=== PATIENT | female | born 1955 | race Caucasian/White ===

== ENCOUNTER → 2017-10-05 | Outpatient (CLI) | payer BC ==
--- NOTE | 2017-10-05 08:21 | MM ---
Reason for exam: additional evaluation requested from abnormal screening. Last mammogram was performed 1 month ago. History: Patient is postmenopausal and had first child at age 31. Family history of breast cancer in sister at age 63. Benign ultrasound-guided cyst aspiration of the right breast, 1999. Benign excisional biopsy of the right breast, 1999. Excisional biopsy of the left breast. Took estrogen for 12 years beginning at age 46. Took progesterone for 12 years beginning at age 46. Physical Findings: Nurse did not find any significant physical abnormalities on exam. MG 3D Work Up W/Cad RT CC, MLO, and LM view(s) were taken of the right breast. Prior study comparison: September 19, 2017, bilateral MG 3d screening mammo w/cad. July 20, 2016, bilateral MG 3d screening mammo w/cad. May 14, 2015, bilateral MG diagnostic mammo w CAD ANTONIO. No distinct new lesion persists. Stable distortion in the left aspect from excisional biopsy. These results were verbally communicated with the patient and result sheet given to the patient on 10/05/17. ASSESSMENT: Benign, BI-RAD 2 RECOMMENDATION: Routine screening mammogram of both breasts in 1 year.
== END | disposition home or self-care (01) ==
LOC: RADMAMWWP 07:06
PROVIDERS: ATTEND Family Medicine
DX: R92.8 Other abnormal and inconclusive findings on diagnostic imaging of breast (principal)
CPT/HCPCS: 77065; G0279

== ENCOUNTER → 2018-11-09 | Outpatient (CLI) | payer BC ==
--- NOTE | 2018-11-10 13:36 | MM ---
Reason for exam: screening (asymptomatic). Last mammogram was performed 1 year and 1 month ago. History: Patient is postmenopausal and had first child at age 31. Family history of breast cancer in sister at age 63. Benign ultrasound-guided cyst aspiration of the right breast, 1999. Benign excisional biopsy of the right breast, 1999. Excisional biopsy of the left breast. Took estrogen for 12 years beginning at age 46. Took progesterone for 12 years beginning at age 46. Physical Findings: A clinical breast exam by your physician is recommended on an annual basis and results should be correlated with mammographic findings. MG 3D Screening Mammo W/Cad Bilateral CC and MLO view(s) were taken. Prior study comparison: October 05, 2017, right breast MG 3d work up w/cad RT. September 19, 2017, bilateral MG 3d screening mammo w/cad. The breast tissue is heterogeneously dense. This may lower the sensitivity of mammography. No suspicious abnormality. No significant changes when compared with prior studies. ASSESSMENT: Negative, BI-RAD 1 RECOMMENDATION: Routine screening mammogram of both breasts in 1 year.
== END | disposition home or self-care (01) ==
LOC: RADMAMWWP 13:25
PROVIDERS: ATTEND Family Medicine
DX: Z12.31 Encounter for screening mammogram for malignant neoplasm of breast (principal)
CPT/HCPCS: 77063; 77067

== ENCOUNTER → 2019-01-05 | Outpatient (CLI) | payer BC ==
--- NOTE | 2019-01-08 09:04 | BD ---
EXAMINATION TYPE: Axial Bone Density DATE OF EXAM: 01/05/2019 COMPARISON: 05/16/2003 CLINICAL HISTORY: Screening for osteoporosis Height: 64.5 IN Weight: 118 LBS RISK FACTORS HISTORY OF: Family History of Osteoporosis: YES SISTER Active: YES Diet low in dairy products/other sources of calcium: YES Postmenopausal woman: AGE 49 Take estrogen and/or progesterone medications: NOT NOW How long: CONTROL AGE 29- 41 MEDICATIONS: Additional Medications: CALCIUM, VIT D, PROBIOTIC, ZYRTEC, EXAM MEASUREMENTS: Bone mineral densitometry was performed using the [employer] System. Bone mineral density as measured about the Lumbar spine is: ----- L1-L4(G/cm2): 1.103 T Score Values are as follows: ----- L2: -0.8 ----- L3: -0.6 ----- L4: -0.3 ----- L1-L4: -0.6 Bone mineral density has: Decreased -15.8% since study of: 05/16/2003 Bone mineral density about the R hip (g/cm2): 0.750 Bone mineral density about the L hip (g/cm2): 0.762 T Score values are as follows: -----R Neck: -2.1 -----L Neck: -2.0 -----R Total: -1.6 -----L Total: -1.5 Bone mineral density has: Decreased -22.6% since study of: 05/16/2003 IMPRESSION: Osteopenia (T Score between -2.5 and -1). There is slightly increased risk of fracture and the patient may be considered for treatment. Re-Screen 2-5 years. NOTE: T-SCORE=SD OF THE YOUNG ADULT MEAN.
== END | disposition home or self-care (01) ==
LOC: RADBDWWP 12:33
PROVIDERS: ATTEND Family Medicine
DX: M85.88 Other specified disorders of bone density and structure, other site (principal)
CPT/HCPCS: 77080

== ENCOUNTER → 2019-02-16 | Outpatient (CLI) | payer BC ==
--- NOTE | 2019-02-17 12:58 | US ---
EXAMINATION TYPE: US transvaginal DATE OF EXAM: 02/16/2019 COMPARISON: NONE CLINICAL HISTORY: Pelvic Pain R10.2. Pain. LO removed x >10 years ago. TECHNIQUE: Transvaginal (TV). Date of LMP: Unknown, EXAM MEASUREMENTS: Uterus: 6.1 x 3.0 x 2.6 cm Endometrial Stripe: 0.2 cm 1. Uterus: Anteverted Heterogenous. Small in size. Left echogenic focus seen with shadow- 0.8 x 1.0 cm 2. Endometrium: fluid seen within canal 3. Right Ovary: Obscured by overlying bowel gas 4. Left Ovary: Surgically absent 5. Bilateral Adnexa: Bilateral peristalsing bowel visualized 6. Posterior cul-de-sac: no free fluid IMPRESSION: 1. The uterus is atrophic with solitary benign-appearing dystrophic calcification possibly from a deg enerative involuted uterine leiomyoma. 2. Tubular structures in the left adnexa appear to represent bowel however left ovarian mass cannot b e excluded on the exam without real-time imaging. Additionally the right ovary is not visualized due to overlying bowel and CT could further assess the pelvis if there is clinical concern.
== END | disposition home or self-care (01) ==
LOC: RADUSWWP 16:03
PROVIDERS: ATTEND Specialist
DX: N85.8 Other specified noninflammatory disorders of uterus (principal); R10.2 Pelvic and perineal pain
CPT/HCPCS: 76830

== ENCOUNTER → 2019-03-09 | Outpatient (CLI) | payer BC ==
--- NOTE | 2019-03-09 14:27 | CT ---
EXAMINATION TYPE: CT abdomen pelvis wo con DATE OF EXAM: 03/09/2019 COMPARISON: Ultrasound 02/16/2019 HISTORY: Left lower quadrant pain CT DLP: 224.9 mGycm Automated exposure control for dose reduction was used. TECHNIQUE: Helical acquisition of images from the lung bases through the pelvis. FINDINGS: Lack of intravenous contrast could compromise sensitivity. LUNG BASES: No significant abnormality is appreciated. AORTA: No significant abnormality is appreciated. LIVER/GB: There are 2 low dense foci within the liver on axial image 22 and 19, the larger measures 1 5 mm. Additional focus within the left lobe on axial image 18 is subcentimeter in size. These are ind eterminate lesions. Gallbladder shows gallstones PANCREAS: No significant abnormality is seen. SPLEEN: No significant abnormality is seen. ADRENALS: No significant abnormality is seen. KIDNEYS: Right kidney is malrotated. There is no hydronephrosis bilaterally. REPRODUCTIVE ORGANS: Calcifications are present within the pelvis, there is likely a calcified fibro id associated with the left aspect of the uterus as noted on ultrasound URINARY BLADDER: No significant abnormality is seen. BOWEL: Large amount of retained fecal debris within the colon.. FREE AIR: No Free Air is visible. ASCITES: None visible. PELVIC ADENOPATHY: None visualized. RETROPERITONEAL ADENOPATHY: No Retroperitoneal Adenopathy visible. OSSEOUS STRUCTURES: No significant abnormality is seen. IMPRESSION: NONCONTRAST EXAM. CHOLELITHIASIS. CALCIFIED FIBROID LIKELY WITHIN THE UTERUS.
== END ==
LOC: RADCTMAIN 12:16
PROVIDERS: ATTEND Specialist
DX: K80.20 Calculus of gallbladder without cholecystitis without obstruction (principal); N83.8 Other noninflammatory disorders of ovary, fallopian tube and broad ligament
CPT/HCPCS: 74176

== ENCOUNTER → 2020-05-01 | Outpatient (CLI) | payer MEDICARE, BC ==
--- NOTE | 2020-05-02 14:47 | MM ---
Reason for exam: screening (asymptomatic). Last mammogram was performed 1 year and 6 months ago. History: Patient is postmenopausal and had first child at age 31. Family history of breast cancer in sister at age 63. Benign ultrasound-guided cyst aspiration of the right breast, 1999. Benign excisional biopsy of the right breast, 1999. Excisional biopsy of the left breast. Took estrogen for 12 years beginning at age 46. Took progesterone for 12 years beginning at age 46. Physical Findings: A clinical breast exam by your physician is recommended on an annual basis and results should be correlated with mammographic findings. MG 3D Screening Mammo W/Cad Bilateral CC and MLO view(s) were taken. Prior study comparison: November 09, 2018, bilateral MG 3d screening mammo w/cad. October 05, 2017, right breast MG 3d work up w/cad RT. The breast tissue is extremely dense which could obscure a lesion on mammography. No significant changes when compared with prior studies. ASSESSMENT: Benign, BI-RAD 2 RECOMMENDATION: Routine screening mammogram of both breasts in 1 year.
== END | disposition home or self-care (01) ==
LOC: RADMAMWWP 15:07
PROVIDERS: ATTEND Family Medicine
DX: Z12.31 Encounter for screening mammogram for malignant neoplasm of breast (principal)
CPT/HCPCS: 77063; 77067

== ENCOUNTER → 2021-03-09 | Outpatient (CLI) | payer MEDICARE, BC ==
--- NOTE | 2021-03-09 16:34 | BD ---
EXAMINATION TYPE: Axial Bone Density DATE OF EXAM: 03/09/2021 COMPARISON: 01.05.2019 CLINICAL HISTORY: 65 YR OLD FEMALE.....ICD-10 CODE: M85.9 DISORDER OF BONE Height: 64.5 Weight: 111 FRAX RISK QUESTIONS: KIDNEY STONES, FROM HYERCALCEMIA RISK FACTORS HISTORY OF: Family History of Osteoporosis: YES, HER SISTER, NO HIP FX Diet low in dairy products/other sources of calcium: YES, LACTOSE INTOLERANT, CANNOT ABSORB CALCIUM Postmenopausal woman: YES, AT ABOUT AGE 49 YRS OLD Take estrogen and/or progesterone medications: YES, FOR ABOUT 2 YRS, BOTH ESTROGEN AND PROGESTERONE Hyperparathyroidism: NO Adrenal Insufficiency: NO MEDICATIONS: Additional Medications: VIT D AND MULTIVITAMIN, FISH OIL, AND MANY OTHER MEDS PLUS THE BIOIDENTICAL H ORMONES Additional History: VERY SLENDER BUILD EXAM MEASUREMENTS: Bone mineral densitometry was performed using the [employer] System. Bone mineral density as measured about the Lumbar spine is: ----- L1-L4(G/cm2): 1.098 T Score Values are as follows: ----- L1: -0.7 ----- L2: -0.9 ----- L3: -0.5 ----- L4: -0.8 ----- L1-L4: -0.7 Bone mineral density has: Decreased -1.5% since study of: 01.05.2019 Bone mineral density about the R hip (g/cm2): 0.802 Bone mineral density about the L hip (g/cm2): 0.816 T Score values are as follows: -----R Neck: -1.9 -----L Neck: -2.1 -----R Total: -1.6 -----L Total: -1.5 Bone mineral density has: Decreased -0.2% since study of: 01.05.2019 FRAX%s: THERE IS A 9.9% CHANCE FOR A MAJOR OSTEOPOROTIC FX AND 1.9% FOR HIP......PROBABILITY FOR FX IN 10 YRS TIME IMPRESSION: Osteopenia (T Score between -2.5 and -1). There is slightly increased risk of fracture and the patient may be considered for treatment. Re-Screen 2-5 years. NOTE: T-SCORE=SD OF THE YOUNG ADULT MEAN.
== END | disposition home or self-care (01) ==
LOC: RADBDWWP 10:06
PROVIDERS: ATTEND Family Medicine
DX: Z13.820 Encounter for screening for osteoporosis (principal); M85.89 Other specified disorders of bone density and structure, multiple sites
CPT/HCPCS: 77080

== ENCOUNTER → 2021-06-22 | Outpatient (CLI) | payer MEDICARE, BC ==
--- NOTE | 2021-06-24 09:54 | MM ---
Reason for exam: screening (asymptomatic). Last mammogram was performed 1 year and 2 months ago. History: Patient is postmenopausal and had first child at age 31. Family history of breast cancer in sister at age 63. Benign ultrasound-guided cyst aspiration of the right breast, 1999. Benign excisional biopsy of the right breast, 1999. Excisional biopsy of the left breast. Took hormonal contraceptives for 15 years. Took estrogen for 12 years beginning at age 46. Took progesterone for 12 years beginning at age 46. Physical Findings: A clinical breast exam by your physician is recommended on an annual basis and results should be correlated with mammographic findings. MG 3D Screening Mammo W/Cad Bilateral CC and MLO view(s) were taken. Prior study comparison: May 01, 2020, bilateral MG 3d screening mammo w/cad. November 09, 2018, bilateral MG 3d screening mammo w/cad. October 05, 2017, right breast MG 3d work up w/cad RT. September 19, 2017, bilateral MG 3d screening mammo w/cad. The breast tissue is heterogeneously dense. This may lower the sensitivity of mammography. Finding: There are grouped/clustered, linear, fine calcifications in the lower outer quadrant, anterior position of the right breast 2cm from the nipple. New finding since May 01, 2020, November 09, 2018, October 05, 2017, and September 19, 2017. ASSESSMENT: Incomplete: need additional imaging evaluation, BI-RAD 0 RECOMMENDATION: Special view mammogram of the right breast. [facility] will attempt to contact patient to return for supplemental views.
== END | disposition home or self-care (01) ==
LOC: RADMAMWWP 14:08
PROVIDERS: ATTEND Family Medicine
DX: Z12.31 Encounter for screening mammogram for malignant neoplasm of breast (principal)
CPT/HCPCS: 77063; 77067

== ENCOUNTER → 2021-07-07 | Outpatient (CLI) | payer MEDICARE, BC ==
--- NOTE | 2021-07-07 14:58 | MM ---
Reason for exam: additional evaluation requested from abnormal screening. Last mammogram was performed less than 1 month ago. History: Patient is postmenopausal and had first child at age 31. Family history of breast cancer in sister at age 63. Benign ultrasound-guided cyst aspiration of the right breast, 1999. Benign excisional biopsy of the right breast, 1999. Excisional biopsy of the left breast. Took hormonal contraceptives for 15 years. Took estrogen for 12 years beginning at age 46. Took progesterone for 12 years beginning at age 46. Physical Findings: Nurse did not find any significant physical abnormalities on exam. MG 3D Work Up W/Cad RT CC with magnification, LM with magnification, and LM view(s) were taken of the right breast. Prior study comparison: June 22, 2021, bilateral MG 3d screening mammo w/cad. May 01, 2020, bilateral MG 3d screening mammo w/cad. November 09, 2018, bilateral MG 3d screening mammo w/cad. The breast tissue is extremely dense which could obscure a lesion on mammography. No definite group of new persistent microcalcifications. These results were verbally communicated with the patient and result sheet given to the patient on 07/07/21. ASSESSMENT: Probably benign, BI-RAD 3 RECOMMENDATION: Follow-up diagnostic mammogram of the right breast in 6 months.
== END | disposition home or self-care (01) ==
LOC: RADMAMWWP 14:11
PROVIDERS: ATTEND Family Medicine
DX: R92.2 Inconclusive mammogram (principal); Z80.3 Family history of malignant neoplasm of breast; Z78.0 Asymptomatic menopausal state
CPT/HCPCS: 77065; G0279; 77061

== ENCOUNTER → 2021-07-09 | Outpatient (CLI) | payer MEDICARE, BC ==
--- NOTE | 2021-07-09 13:03 | US ---
EXAMINATION TYPE: US abdomen complete DATE OF EXAM: 07/09/2021 COMPARISON: CT 2019 CLINICAL HISTORY: 66-year-old female R10.12 LUQ pain. Intermittent left flank pain x couple years, di arrhea TECHNIQUE: Multiple sonographic images of the abdomen are obtained. FINDINGS: EXAM MEASUREMENTS: Liver Length: 12.8 cm Gallbladder Wall: 0.2 cm CBD: 0.3 cm Spleen: Unable to determine due to obscuration from bowel gas Right Kidney: 9.8 x 4.0 x 4.6 cm Left Kidney: 11.2 x 5.5 x 4.0 cm Pancreas: wnl Liver: 2 right lobe cysts. The larger one is mildly complex with some septations and measures 2.0 cm . It appears to have slightly enlarged compared to the 03/09/2019 CT. The smaller simple cyst measures 1.2 cm. Gallbladder: wnl Evidence for sonographic Marley's sign: no CBD: wnl Spleen: obscured by overlying bowel gas Right Kidney: inferior pole obscured by overlying bowel gas Left Kidney: wnl Upper IVC: wnl Abd Aorta: wnl IMPRESSION: 1. A couple right hepatic lobe cysts. The larger 2.0 cm cyst is mildly complex with some septations a nd has slightly enlarged from 2019. Recommend one-year ultrasound follow-up to reassess. 2. Unable to adequately visualize the spleen. 3. No hydronephrosis.
== END | disposition home or self-care (01) ==
LOC: RADUSWWP 09:00
PROVIDERS: ATTEND Family Medicine
DX: K76.89 Other specified diseases of liver (principal)
CPT/HCPCS: 76700

== ENCOUNTER → 2021-12-25 | Outpatient (CLI) | payer MEDICARE, BC ==
--- NOTE | 2021-12-25 14:43 | MM ---
Reason for exam: follow-up at short interval from prior study. Last mammogram was performed 6 months ago. History: Patient is postmenopausal and had first child at age 31. Family history of breast cancer in sister at age 63. Benign ultrasound-guided cyst aspiration of the right breast, 1999. Benign excisional biopsy of the right breast, 1999. Excisional biopsy of the left breast. Took hormonal contraceptives for 15 years. Taking estrogen for 14 years beginning at age 46. Taking progesterone for 14 years beginning at age 46. Physical Findings: A clinical breast exam by your physician is recommended on an annual basis and results should be correlated with mammographic findings. MG 3D Diag Mammo W/Cad RT CC and MLO view(s) were taken of the right breast. Prior study comparison: July 07, 2021, right breast MG 3d work up w/cad RT. May 01, 2020, bilateral MG 3d screening mammo w/cad. The breast tissue is extremely dense which could obscure a lesion on mammography. There are benign appearing round calcifications in the right breast. There is no discrete abnormality. ASSESSMENT: Incomplete: need additional imaging evaluation, BI-RAD 0 RECOMMENDATION: Ultrasound of the right breast. (palpable)
--- NOTE | 2021-12-25 14:46 | USB ---
Reason for exam: additional evaluation requested from abnormal screening. History: Patient is postmenopausal and had first child at age 31. Family history of breast cancer in sister at age 63. Benign ultrasound-guided cyst aspiration of the right breast, 1999. Benign excisional biopsy of the right breast, 1999. Excisional biopsy of the left breast. Took hormonal contraceptives for 15 years. Taking estrogen for 14 years beginning at age 46. Taking progesterone for 14 years beginning at age 46. Physical Findings: A clinical breast exam by your physician is recommended on an annual basis and results should be correlated with mammographic findings. US Breast RT Technologist: Cathy Leo Right complete breast ultrasound includes all four quadrants, the retroareolar region and axilla. Finding demonstrates several cystic lesions measuring 0.2 x 0.4 x 0.3cm at 12 o'clock 1cm from nipple, 0.3 x 0.3 x 0.2cm at 12 o'clock 2cm from nipple, 0.5 x 0.4 x 0.3cm at 5 o'clock 1cm from nipple, 0.6 x 0.5 x 0.3cm at 7 o'clock 1 cm from nipple, 0.5 x 0.4 x 0.5cm at 8 o'clock 1cm from nipple, 0.8 x 0.9 x 0.4cm at 11 o'clock 1cm from nipple, 0.8 x 0.8 x 0.5cm at 11 o'clock 3cm from nipple and 0.7 x 0.7 x 0.5cm at 9 o'clock 3cm from nipple. ASSESSMENT: Benign, BI-RAD 2 RECOMMENDATION: Return to routine screening mammogram schedule for both breasts. Back on schedule.
== END | disposition home or self-care (01) ==
LOC: RADMAMWWP 08:30
PROVIDERS: ATTEND Family Medicine
DX: N63.10 Unspecified lump in the right breast, unspecified quadrant (principal); Z78.0 Asymptomatic menopausal state; Z80.3 Family history of malignant neoplasm of breast
CPT/HCPCS: 77065; 76641; G0279; 77061

== ENCOUNTER 2022-05-27 11:50 | Observation (INO) | payer MEDICARE, BC ==
[2022-05-27] MEDS ORDERED: SODIUM CHLORIDE 0.9% 1,000 ML IV STA (12:44)
--- NOTE | 2022-05-27 12:48 | ED ---
General Adult HPI - General Chief complaint: Neuro Symptoms/Deficit Stated complaint: Dizziness Time Seen by Provider: 05/27/22 12:21 Source: patient, family, RN notes reviewed Mode of arrival: wheelchair Limitations: no limitations - History of Present Illness Initial comments: Patient is a pleasant 67-year-old female presenting to the emergency department with concerns for dizziness. Patient does have history of similar symptoms previously and does have history of vertigo. Patient does not feel a spinning type sensation. Patient had MRI secondary to chronic neurological problems. Patient does have memory problems and does have episodes of mild convulsions and usually just lasts for a couple of seconds. Patient has had 100s of these before. Patient had problems symptoms similar to this in 2008 and had MRI and neurology evaluation and lumbar puncture. There is reported lesions on the brain and they thought it may be attributed to MS or vascular disease. Lumbar puncture was reported as negative. Symptoms diminish however seem to have increased recently. After MRI today patient felt more dizzy described as lightheaded and has had a couple of these episodes. On previous neurology evaluation these were found to not be epileptic - Related Data Home Medications Medication Instructions Recorded Confirmed estradioL [Vivelle-Dot 0.0375 MG] 1 patch TRANSDERM TUSA 05/27/22 05/27/22 Allergies Allergy/AdvReac Type Severity Reaction Status Date / Time iodine Allergy Anaphylaxis Verified 05/27/22 13:32 shellfish derived [Shellfish] Allergy Anaphylaxis Verified 05/27/22 13:32 gluten AdvReac Nausea & Verified 05/27/22 13:32 Vomiting & Diarrhea Milk Containing Products AdvReac Nausea & Verified 05/27/22 13:32 [Dairy] Vomiting & Diarrhea Review of Systems ROS Statement: Those systems with pertinent positive or pertinent negative responses have been documented in the HPI. ROS Other: All systems not noted in ROS Statement are negative. Constitutional: Denies: fever Eyes: Denies: eye pain ENT: Denies: ear pain Respiratory: Denies: cough, dyspnea Cardiovascular: Denies: chest pain Endocrine: Denies: fatigue Gastrointestinal: Denies: abdominal pain Genitourinary: Denies: dysuria Musculoskeletal: Denies: back pain Skin: Denies: rash Neurological: Reports: as per HPI. Denies: headache, weakness, confusion Past Medical History Additional Past Medical History / Comment(s): memory issues Smoking Status: Never smoker Past Alcohol Use History: None Reported Past Drug Use History: None Reported General Exam Limitations: no limitations General appearance: alert, in no apparent distress Head exam: Present: atraumatic Eye exam: Present: normal appearance, PERRL, EOMI Neck exam: Present: normal inspection. Absent: tenderness Respiratory exam: Present: normal lung sounds bilaterally Cardiovascular Exam: Present: regular rate, normal rhythm GI/Abdominal exam: Present: soft. Absent: tenderness Extremities exam: Present: normal inspection Neurological exam: Present: alert, oriented X3, CN II-XII intact. Absent: motor sensory deficit Expanded Neurological exam: Present: protecting the airway Speech: Present: fluid speech Cranial nerves: EOM's Intact: Normal, Facial Sensation: Normal Sensory exam: Upper Extremity Light Touch: Normal, Lower Extremity Light Touch: Normal Motor strength exam: RUE: 5, LUE: 5, RLE: 5, LLE: 5 Eye Response: (4) open spontaneously Motor Response: (6) obeys commands Verbal Response: (5) oriented Psychiatric exam: Present: normal affect, normal mood Skin exam: Present: normal color Course Vital Signs 05/27/22 05/27/22 11:59 12:36 Temperature 98.2 F Pulse Rate 68 70 Respiratory 18 16 Rate Blood Pressure 124/76 140/85 O2 Sat by Pulse 99 98 Oximetry - Reevaluation(s) Reevaluation #1: 05/27/22 12:44 Patient refuses any medication stating that she is sensitive. 05/27/22 12:47 Patient did have 3 episodes of generalized convulsions lasting approximately 2-3 seconds during evaluation. Following each episode patient is alert and able to converse and follow commands immediately. 05/27/22 14:32 Case was discussed with Dr. Roach, who will consult. Medical Decision Making - Medical Decision Making Patient reevaluated and resting comfortably at bedside. Patient states she was unsteady when she got up. Patient attempted ambulation with nursing assistance and had significant difficulty with stuttering and off balance. Patient did have some mild generalized convulsion and almost fell. Patient was sat back in her chair and after several seconds return to normal. Patient states back in 2008 she did have some episodes somewhat similar to this however otherwise has not. Case also discussed with Dr. Ma, who will admit covering hospital observation call - Lab Data Result diagrams: 05/27/22 12:54 05/27/22 13:30 Lab Results 05/27/22 05/27/22 05/27/22 Range/Units 12:54 12:54 13:30 WBC 4.5 (3.8-10.6) k/uL RBC 4.68 (3.80-5.40) m/uL Hgb 14.5 (11.4-16.0) gm/dL Hct 46.7 H (34.0-46.0) % MCV 99.8 (80.0-100.0) fL MCH 31.1 (25.0-35.0) pg MCHC 31.2 (31.0-37.0) g/dL RDW 12.5 (11.5-15.5) % Plt Count 196 (150-450) k/uL MPV 7.4 Neutrophils % 61 % Lymphocytes % 25 % Monocytes % 8 % Eosinophils % 3 % Basophils % 1 % Neutrophils # 2.8 (1.3-7.7) k/uL Lymphocytes # 1.1 (1.0-4.8) k/uL Monocytes # 0.4 (0-1.0) k/uL Eosinophils # 0.1 (0-0.7) k/uL Basophils # 0.1 (0-0.2) k/uL Sodium 138 (137-145) mmol/L Potassium 4.0 (3.5-5.1) mmol/L Chloride 105 (98-107) mmol/L Carbon Dioxide 25 (22-30) mmol/L Anion Gap 8 mmol/L BUN 17 (7-17) mg/dL Creatinine 0.50 L (0.52-1.04) mg/dL Est GFR (CKD-EPI)AfAm >90 (>60 ml/min/1.73 sqM) Est GFR (CKD-EPI)NonAf >90 (>60 ml/min/1.73 sqM) Glucose 109 H (74-99) mg/dL Calcium 9.0 (8.4-10.2) mg/dL Magnesium 2.2 (1.6-2.3) mg/dL Total Bilirubin 0.4 (0.2-1.3) mg/dL AST 24 (14-36) U/L ALT 15 (4-34) U/L Alkaline Phosphatase 53 (38-126) U/L Total Protein 6.2 L (6.3-8.2) g/dL Albumin 3.8 (3.5-5.0) g/dL Urine Color Yellow Urine Appearance Clear (Clear) Urine pH 6.0 (5.0-8.0) Ur Specific [place] 1.026 (1.001-1.035) Urine Protein Negative (Negative) Urine Glucose (UA) Negative (Negative) Urine Ketones Negative (Negative) Urine Blood Negative (Negative) Urine Nitrite Negative (Negative) Urine Bilirubin Negative (Negative) Urine Urobilinogen 2.0 (<2.0) mg/dL Ur Leukocyte Esterase Negative (Negative) Urine Opiates Screen Not Detected (NotDetected) Ur Oxycodone Screen Not Detected (NotDetected) Urine Methadone Screen Not Detected (NotDetected) Ur Propoxyphene Screen Not Detected (NotDetected) Ur Barbiturates Screen Not Detected (NotDetected) U Tricyclic Antidepress Not Detected (NotDetected) Ur Phencyclidine Scrn Not Detected (NotDetected) Ur Amphetamines Screen Not Detected (NotDetected) U Methamphetamines Scrn Not Detected (NotDetected) U Benzodiazepines Scrn Not Detected (NotDetected) Urine Cocaine Screen Not Detected (NotDetected) U Marijuana (THC) Screen Not Detected (NotDetected) Serum Alcohol <10 mg/dL - Radiology Data Radiology results: report reviewed (MRI done today shows no evidence of recent infarct. Atrophy and white matter changes. Scattered lesions with a broad differential including chronic small vessel disease, atypical infection such as Lyme disease, multiple sclerosis or other) Disposition Clinical Impression: Convulsions, Ataxia Disposition: ADMITTED IP TO THIS [facility] Is patient prescribed a controlled substance at d/c from ED?: No Referrals: Maynor Gilliam DO [Primary Care Provider] - 1-2 days Time of Disposition: 14:24
[2022-05-27 13:02] LABS: Basophils # (A) 0.1 k/uL (0-0.2); Basophils % (A) 1 %; Eosinophils # (A) 0.1 k/uL (0-0.7); Eosinophils % (A) 3 %; HCT 46.7 % (34.0-46.0); HGB 14.5 gm/dL (11.4-16.0); Lymphocytes # (A) 1.1 k/uL (1.0-4.8); Lymphocytes % (A) 25 %; MCH 31.1 pg (25.0-35.0); MCHC 31.2 g/dL (31.0-37.0); MCV 99.8 fL (80.0-100.0); Mean Platelet Volume 7.4; Monocytes # (A) 0.4 k/uL (0-1.0); Monocytes % (A) 8 %; Neutrophils # (A) 2.8 k/uL (1.3-7.7); Neutrophils % (A) 61 %; Platelet Count 196 k/uL (150-450); RBC 4.68 m/uL (3.80-5.40); RDW 12.5 % (11.5-15.5); WBC 4.5 k/uL (3.8-10.6)
[2022-05-27 13:59] LABS: AST 24 U/L (14-36); African American GFR (CKD) >90 (>60 ml/min/1.73 sqM); Albumin 3.8 g/dL (3.5-5.0); Anion Gap 8 mmol/L; Blood Urea Nitrogen 17 mg/dL (7-17); Carbon Dioxide 25 mmol/L (22-30); Chloride 105 mmol/L (98-107); Glucose 109 mg/dL (74-99); Non-African American GFR(CKD) >90 (>60 ml/min/1.73 sqM); Sodium 138 mmol/L (137-145); Total Bilirubin 0.4 mg/dL (0.2-1.3); Total Protein 6.2 g/dL (6.3-8.2)
[2022-05-27 14:00] LABS: ALT 15 U/L (4-34); Alcohol <10 mg/dL; Alkaline Phosphatase 53 U/L (38-126); Magnesium 2.2 mg/dL (1.6-2.3)
[2022-05-27 14:36] LABS: Appearance,Urine Clear (Clear); Bilirubin,Urine Negative (Negative); Blood,Urine Negative (Negative); Color,Urine Yellow; Glucose,Urine (UA) Negative (Negative); Ketones,Urine Negative (Negative); Leukocyte Esterase,Urine Negative (Negative); Nitrite,Urine Negative (Negative); Protein,Urine Negative (Negative); Specific Gravity,Urine 1.026 (1.001-1.035)
[2022-05-27 14:46] LABS: Amphetamine Screen,Urine Not Detected (NotDetected); Barbiturate Screen,Urine Not Detected (NotDetected); Benzodiazepines Screen,Urine Not Detected (NotDetected); Cocaine Screen,Urine Not Detected (NotDetected); Methadone Screen, Urine Not Detected (NotDetected); Opiate Screen,Urine Not Detected (NotDetected); Oxycodone Screen, Urine Not Detected (NotDetected); Phencyclidine Screen,Urine Not Detected (NotDetected); Tricyclic Antidepressant,Urine Not Detected (NotDetected); Urn Cannabinoid Scrn Not Detected (NotDetected)
[2022-05-27] MEDS ORDERED: NALOXONE 0.4 MG/ML 1 ML VIAL IV PRN (14:56)
[2022-05-27] MEDS ORDERED: ALPRAZolam 0.25 MG TAB PO PRN (14:56)
--- NOTE | 2022-05-27 16:51 | P.HPIM ---
History of Present Illness H&P Date: 05/27/22 Chief Complaint: convulsions 67-year-old female presenting to the emergency department with concerns for intractable shaking. After having an MRI today she started having unc ontrollable body shakes. She does not lose consciousness during those episodes. MRI was ordered because her primary care doctor did tendon reflexes exam and she was having shakes after that. Patient has a history of vertigo but what happened today was different. Patient does have history of memory problems as well as remote seizure hx. Patient had problems symptoms similar to this in 2008 and had MRI and neurology evaluation and lumbar puncture. She was eventually told that she did not have real seizure but only" overexcited brain". Her mentioned to me that she has not been sleeping lately. She has lost standing history of insomnia. She denied any focal weakness or numbness. No blurred vision or double vision. Review of Systems Complete review of system performed, pertinent positives per HPI, otherwise negative Past Medical History Additional Past Medical History / Comment(s): memory issues Smoking Status: Never smoker Past Alcohol Use History: None Reported Past Drug Use History: None Reported Medications and Allergies Home Medications Medication Instructions Recorded Confirmed Type estradioL [Vivelle-Dot 0.0375 MG] 1 patch TRANSDERM TUSA 05/27/22 05/27/22 History Allergies Allergy/AdvReac Type Severity Reaction Status Date / Time iodine Allergy Anaphylaxis Verified 05/27/22 13:32 shellfish derived [Shellfish] Allergy Anaphylaxis Verified 05/27/22 13:32 gluten AdvReac Nausea & Verified 05/27/22 13:32 Vomiting & Diarrhea Milk Containing Products AdvReac Nausea & Verified 05/27/22 13:32 [Dairy] Vomiting & Diarrhea Physical Exam Vitals: Vital Signs Temp Pulse Resp BP Pulse Ox 05/27/22 12:36 70 16 140/85 98 05/27/22 11:59 98.2 F 68 18 124/76 99 Intake and Output 05/27/22 05/27/22 05/27/22 06:59 14:59 22:59 Other: Weight 49.895 kg Constitutional: No acute distress, conversant, pleasant Eyes:Anicteric sclerae, moist conjunctiva, no lid-lag, PERRLA, ENMT: Oropharynx clear, no erythema, exudates Neck: Supple, FROM, no masses, or JVD, No carotid bruits, No thyromegaly Lungs: Clear to auscultation, Clear to percussion, Normal respiratory effort, no accessory muscle use Cardiovascular: Heart regular in rate and rhythm, No murmurs, gallops, or rubs, No peripheral edema Abdominal: Soft, Nontender, no guarding, rebound or rigidity, Normoactive bowel sounds, No hepatomegaly, No splenomegaly, No palpable mass Skin: Normal temperature, tone, texture, turgor, no induration, No subcutaneous nodules, No rash, lesions, No ulcers Extremities: No digital cyanosis, No clubbing, Pedal pulses intact and symmetrical, Radial pulses intact and symmetrical, No calf tenderness Psychiatric: Alert and oriented to person, place and time, appropriate affect, intact judgement Neuro: Muscles Strength 5/5 in all 4 extremities, Sensation to light touch grossly present throughout, Cranial nerves II-XII grossly intact, no focal sensory deficits Results CBC & Chem 7: 05/27/22 12:54 05/27/22 13:30 Labs: Abnormal Lab Results - Last 24 Hours (Table) 05/27/22 05/27/22 Range/Units 12:54 13:30 Hct 46.7 H (34.0-46.0) % Creatinine 0.50 L (0.52-1.04) mg/dL Glucose 109 H (74-99) mg/dL Total Protein 6.2 L (6.3-8.2) g/dL Assessment and Plan Plan: Convulsions, possible seizure Management per neurology, already consulted When necessary Ativan IV. Follow up on the MRI. EEG History of fibromyalgia Chronic chest pain Chronic insomnia Osteopenia All stable Admit to observation
[2022-05-27] MEDS: SODIUM CHLORIDE 0.9% 1,000 ML IV SCH (17:59)
[2022-05-28] MEDS: SODIUM CHLORIDE 0.9% 1,000 ML IV SCH (00:09)
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
[2022-05-28 09:26] LABS: Basophils # (A) 0.04 X 10*3/uL (0.00-0.10); Basophils % (A) 1.1 %; Eosinophils # (A) 0.17 X 10*3/uL (0.04-0.35); Eosinophils % (A) 4.6 %; HGB 12.5 g/dL (12.0-15.0); Immature Grans, Automated 0 %; Lymphocytes # (A) 1.61 X 10*3/uL (0.90-5.00); Lymphocytes % (A) 43.3 %; MCH 32.6 pg (27.0-32.0); MCHC 33.8 g/dL (32.0-37.0); MCV 96.6 fL (80.0-97.0); Mean Platelet Volume 10.6 fL (9.5-12.2); Monocytes # (A) 0.42 X 10*3/uL (0.20-1.00); Monocytes % (A) 11.3 %; NRBC Per 100 WBC 0 /100 WBCS (0.0-0.0); Neutrophils # (A) 1.48 X 10*3/uL (1.80-7.70); Neutrophils % (A) 39.7 %; Platelet Count 173 X 10*3/uL (140-440); RBC 3.83 X 10*6/uL (4.10-5.20); RDW 13.1 % (11.5-14.5); WBC 3.72 X 10*3/uL (4.50-10.00)
[2022-05-28 09:48] LABS: African American GFR (CKD) 108.5 (60.0-200.0); Albumin 3.6 g/dL (3.8-4.9); Albumin/Globulin Ratio 2.12 (1.60-3.17); Anion Gap 8.4 mmol/L (10.00-18.00); BUN/Creat Ratio 22.17 Ratio (12.00-20.00); Blood Urea Nitrogen 13.3 mg/dL (9.0-27.0); Calcium 8.6 mg/dL (8.7-10.3); Carbon Dioxide 24.6 mmol/L (20.0-27.5); Globulin 1.7 g/dL (1.6-3.3); Non-African American GFR(CKD) 93.7 (60.0-200.0); Potassium 3.8 mmol/L (3.5-5.5); Total Bilirubin 0.5 mg/dL (0.30-1.20); Total Protein 5.3 g/dL (6.2-8.2)
[2022-05-28 11:31] LABS: HDL Cholesterol 87.4 mg/dL (40.00-60.00); Triglycerides 49.8 mg/dL (0.00-149.00)
[2022-05-28 11:40] LABS: Lyme IgG/IgM 0.04 Index
[2022-05-28 11:46] LABS: Chol/HDL Ratio 2.71 Ratio
[2022-05-28] MEDS ORDERED: traZODone HCL 50 MG TAB PO PRN (13:58)
--- NOTE | 2022-05-28 14:05 | P.CN ---
Psychiatric Consult - . Consult date: 05/28/22 Consult:: 05/28/22 12:59 IDENTIFYING DATA: This patient is a 67-year-old female who currently lives with her in a house has 2 sons. 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 REASON FOR REFERRAL: Psychiatry was consulted for anxiety HISTORY OF PRESENT ILLNESS: The patient presented to the hospital yesterday for dizziness. Patient apparently has a history of vertigo. She apparently had 3 episodes of compulsions after having her MRI yesterday and was admitted medically. Urinalysis and urine drug screen were both negative. Neurology has been following along. Patient had an abnormal MRI showing white matter lesions. Patient's nurse states that patient has been fairly cooperative however having difficulty with her gait, is not reporting any anxiety to her. Patient was seen lying in the bed today before lunch and agreeable proposal manager writer. She was calm and cooperative and did not appear to be anxious. She denies any problems with her mood states that she is not feeling depressed and denies any anxiety. She claims that she is feeling okay now and explained the compulsions in the hospital and also memory issues dating back to 2008. He claims that Dr. Gilliam advised that she come to the hospital for an MRI. She claims at this time she is having problems with her gait and felt "wobbly" yesterday. She states that her sleep has been fairly poor and has frequent awakenings. She states that she has nightmares that are trauma related about 2-3 nights a week. She states that she has been to counseling in the past that have helped her. She states that her appetite is fair. At this time patient denies any suicidal or homical ideations, intent or plan. Patient denies any auditory, visual hallucinations and denies any paranoia or delusions. Patients admits to using no recreational drugs cigarettes or alcohol. She is denying any flashbacks, hypervigilance or avoiding crowds. PAST PSYCHIATRIC HISTORY: Patient has a a history of trauma howeverof the diagnosis. She claims that she was on several different sleep medications and also some psychiatric medications that she does not know the name of in the past. Patient denies any previous psychiatric hospitalizations. Patient denies any psychiatric outpatient follow-up however did state that she had a therapist that she used to see in the past. Patient denies any history of suicide attempts in the past. PAST MEDICAL HISTORY: denies. ALLERGIES: as per EMR. CHEMICAL DEPENDENCY HISTORY: as per HPI. FAMILY PSYCHIATRIC/SUBSTANCE USE HISTORY: Claims that her sister had schizophrenia SOCIAL HISTORY: Patient was born and raised in [place] and also in [place]. She claims that she completed high school undergraduate studies at also masters in education and teaching. 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 She denies any legal history. She currently lives with her in a house. She has 2 sons. MENTAL STATUS EXAM: General Appearance: Patient appears to be thin, wearing glasses, stated age is alert, pleasant, and cooperative. Patient appears to have fair hygiene and grooming wearing hospital gown with fair eye contact. Behavior: Patient is calmly lying in bed without any agitated behavior. Does not appear to be anxious Speech: Patient's speech is fluent and nonpressured. Mood/Affect: Patient reports their mood is "fine", affect is congruent Suicidality/Homicidality: Patient denies having any suicidal or homicidal ideation intent or plan. Perceptions: Patient denies any visual hallucinations and denies any auditory hallucinations Though content/process: There is no evidence of any delusional thought content and thought process is linear and goal-directed. Rambles at times. Memory and concentration: AOX3, grossly intact for the purposes of this session. Can spell "WORLD" backwards Judgment and insight: Fair IMPRESSIONS: Trauma related stress disorder PLAN: -At this time patient DOES NOT meet criteria for inpatient psychiatric admission. -Would recommend the following medication changes/additions: Can continue small dose of Xanax when necessary for anxiety. Patient is agreeable to try trazodone 25 mg daily at bedtime when necessary for insomnia. Discussed option for trying prazosin qhs for trauma related nightmares however patient states that she does not want to try this at this time due to the side effect profile. -aniline press worker to provide patient with outpatient mental health/psychiatry resources for appropriate follow up upon discharge -Communicated plan to patient's nurse -Psychiatry will sign off at this time -Please contact with any questions. 05/28/22 13:58
--- NOTE | 2022-05-28 14:29 | P.PN ---
Subjective Progress Note Date: 05/28/22 Principal diagnosis: shaking No episodes of shaking noted hospitalization. Currently doing well. No complaints. No chest pain or shortness of breath. No fevers or chills. Objective - Vital Signs Vital signs: Vital Signs Temp 97.6 F 05/28/22 07:00 Pulse 61 05/28/22 07:00 Resp 16 05/28/22 07:00 BP 105/64 05/28/22 07:00 Pulse Ox 98 05/28/22 07:00 FiO2 Intake & Output 05/27/22 05/28/22 05/28/22 18:59 06:59 18:59 Weight 49.895 kg 49.895 kg Other: Voiding Method Toilet # Voids 2 - Exam Constitutional: No acute distress, conversant, pleasant Eyes:Anicteric sclerae, moist conjunctiva, no lid-lag, PERRLA, ENMT: Oropharynx clear, no erythema, exudates Neck: Supple, FROM, no masses, or JVD, No carotid bruits, No thyromegaly Lungs: Clear to auscultation, Clear to percussion, Normal respiratory effort, no accessory muscle use Cardiovascular: Heart regular in rate and rhythm, No murmurs, gallops, or rubs, No peripheral edema Abdominal: Soft, Nontender, no guarding, rebound or rigidity, Normoactive bowel sounds, No hepatomegaly, No splenomegaly, No palpable mass Skin: Normal temperature, tone, texture, turgor, no induration, No subcutaneous nodules, No rash, lesions, No ulcers Extremities: No digital cyanosis, No clubbing, Pedal pulses intact and symmetrical, Radial pulses intact and symmetrical, No calf tenderness Psychiatric: Alert and oriented to person, place and time, appropriate affect, intact judgement Neuro: Muscles Strength 5/5 in all 4 extremities, Sensation to light touch grossly present throughout, Cranial nerves II-XII grossly intact, no focal sensory deficits - Labs CBC & Chem 7: 05/28/22 05:03 05/28/22 05:03 Labs: Abnormal Lab Results - Last 24 Hours (Table) 05/28/22 05/28/22 05/28/22 Range/Units 05:03 05:03 08:36 WBC 3.72 L (4.50-10.00) X 10*3/uL RBC 3.83 L (4.10-5.20) X 10*6/uL Hct 37.0 L (37.2-46.3) % MCH 32.6 H (27.0-32.0) pg Neutrophils # 1.48 L (1.80-7.70) X 10*3/uL Anion Gap 8.40 L (10.00-18.00) mmol/L BUN/Creatinine Ratio 22.17 H (12.00-20.00) Ratio Calcium 8.6 L (8.7-10.3) mg/dL Alkaline Phosphatase 38 L (41-126) U/L Total Protein 5.3 L (6.2-8.2) g/dL Albumin 3.6 L (3.8-4.9) g/dL Cholesterol 237.00 H (0.00-200.00) mg/dL LDL Cholesterol Direct 145.00 H (0.00-129.00) mg/dL HDL Cholesterol 87.40 H (40.00-60.00) mg/dL Vitamin B12 1088.0 H (200.0-944.0) pg/mL Assessment and Plan Plan: Convulsions, possible seizure Management per neurology, already consulted When necessary Ativan IV. Brain MRI showed white matter disease. EEG pending Generalized anxiety disorder, insomnia Seen by psychiatry, trazodone initiated. History of fibromyalgia Chronic chest pain Osteopenia All stable
[2022-05-28 15:20] VITALS: BMI 18.3
[2022-05-28 16:01] VITALS: BP 124/76; PULSE 69; RESP 18; TEMP 98.5
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
--- NOTE | 2022-05-29 10:27 | P.DS ---
Providers Date of admission: 05/27/22 14:56 Expected date of discharge: 05/28/22 Attending physician: Shari Ma MD Consults: 05/27/22 14:56 Consult Physician Urgent Consulting Provider: mAy Brand Consult Reason/Comments: Convulsions, ataxia Do you want consulting provider notified?: Already Contacted 05/28/22 09:38 Consult Physician Routine Consulting Provider: Eris Chu Consult Reason/Comments: anxity Do you want consulting provider notified?: Yes Primary care physician: Maynor Gilliam [facility] Course: 67-year-old female presenting to the emergency department with concerns for intractable shaking. After having an MRI today she started having uncontrollable body shakes. She does not lose consciousness during those episodes. MRI was ordered because her primary care doctor did tendon reflexes exam and she was having shakes after that. Patient has a history of vertigo but what happened today was different. Patient does have history of memory problems as well as remote seizure hx. Patient had problems symptoms similar to this in 2008 and had MRI and neurology evaluation and lumbar puncture. She was eventually told that she did not have real seizure but only" overexcited brain". Her mentioned to me that she has not been sleeping lately. She has lost standing history of insomnia. She denied any focal weakness or numbness. No blurred vision or double vision. Patient was subsequently admitted, she was evaluated by neurology service who ordered an MRI of the brain as well as an EEG. MRI brain showed chronic white matter disease with broad differential. EKG did not show any epileptiform discharges. 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 Neurology advised psychiatric consultation which was done. Psychiatrist recommended initiating trazodone for sleep as patient suffers from chronic insomnia. Patient was discharged eventually home in a stable condition. Patient Condition at Discharge: Good Plan - Discharge Summary New Discharge Prescriptions: No Action estradioL [Vivelle-Dot 0.0375 MG] 1 patch TRANSDERM TUSA Discharge Medication List estradioL [Vivelle-Dot 0.0375 MG] 1 patch TRANSDERM TUSA 05/27/22 [History] Follow up Appointment(s)/Referral(s): Maynor Gilliam DO [Primary Care Provider] - 1-2 days Discharge Disposition: HOME SELF-CARE
== END 2022-05-28 20:25 | disposition home or self-care (01) ==
LOC: EC 11:50 → 6NMEDSUR 14:56
PROVIDERS: ADMIT Internal Medicine; ATTEND Internal Medicine
DX: R56.9 Unspecified convulsions (principal); R27.0 Ataxia, unspecified; F41.1 Generalized anxiety disorder; F51.04 Psychophysiologic insomnia; F44.4 Conversion disorder with motor symptom or deficit; R90.82 White matter disease, unspecified; F51.5 Nightmare disorder; M79.7 Fibromyalgia; M62.838 Other muscle spasm; M85.80 Other specified disorders of bone density and structure, unspecified site; G89.29 Other chronic pain; R07.9 Chest pain, unspecified; Z91.02 Food additives allergy status; Z91.011 Allergy to milk products; Z91.013 Allergy to seafood; Z91.048 Other nonmedicinal substance allergy status; Z79.890 Hormone replacement therapy
CPT/HCPCS: 96360; 96361; 99284; 36415; 95816; 84207; 83921; 84425; 80061; 80053 ×2; 84443; 82607; 82746; 83735; 85025 ×2; 81003; 83721; 86618; 86780; 86038; 80306; 83036; G0378 ×2; G0480; 80320

== ENCOUNTER → 2022-08-27 | Outpatient (CLI) | payer MEDICARE, BC ==
--- NOTE | 2022-08-27 09:52 | US ---
EXAMINATION TYPE: US liver DATE OF EXAM: 08/27/2022 COMPARISON: 07/09/2021 CLINICAL HISTORY: K76.89 other spec diseases of liver. TECHNIQUE: Multiple sonographic images of the right upper quadrant are obtained. FINDINGS: EXAM MEASUREMENTS: Liver Length: 13.4 cm Gallbladder Wall: 0.1 cm CBD: 0.2 cm Right Kidney: 10.0 x 3.0 x 4.6 cm Pancreas: wnl as seen, partially obscured by overlying bowel gas Liver: 3 liver cysts, left lobe 1.1 x 0.9 x 0.9 cm, previously measured 1.2 x 0.9 x 1.1 and septate d measuring 1.8 x 1.8 x 1.6cm Gallbladder: wnl Evidence for sonographic Marley's sign: no CBD: wnl Right Kidney: No hydronephrosis or masses seen IMPRESSION: 1. No evidence for acute process. 2. Hepatic cysts one of which appears to have thin septation versus 2 immediately adjacent cysts. 3.
== END | disposition home or self-care (01) ==
LOC: RADUSWWP 08:54
PROVIDERS: ATTEND Family Medicine
DX: K76.89 Other specified diseases of liver (principal)
CPT/HCPCS: 76705

== ENCOUNTER → 2022-09-07 | Outpatient (CLI) | payer MEDICARE, BC ==
--- NOTE | 2022-09-08 09:34 | MM ---
Reason for Exam: Screening (asymptomatic). Last mammogram was performed 1 year(s) and 3 month(s) ago. Patient History: Menarche at age 13. First Full-Term at age 31. Late child-bearing (after 30). Left ovary removed at age 39. Postmenopausal. Currently using Estrogen, beginning at age 46 for 14 years. Currently using Progesterone, beginning at age 46 for 14 years. Patient used Hormonal Contraceptives for 15 years. 1999, Benign Ultrasound-Guided Cyst Aspiration on the right side. 1999, Benign Excisional Biopsy on the right side. Excisional Biopsy on the Left side. Sister had breast cancer, age 63. Risk Values: Lucina 5 year model risk: 4.7%. NCI Lifetime model risk: 14.6%. Prior Study Comparison: 06/22/2021 Bilateral Screening Mammogram, [facility]. 07/07/2021 Right Diagnostic Mammogram, [facility]. 12/25/2021 Right Diagnostic Mammogram, [facility]. Tissue Density: The breast tissue is extremely dense which could obscure a lesion on mammography. Findings: Analyzed By CAD. There is no suspicious new group of microcalcifications or new distortion in either breast. Overall Assessment: Negative, BI-RAD 1 Management: Screening Mammogram of both breasts in 1 year. Some advise bilateral breast ultrasound surveillance in patients with background of extremely dense tissue. A clinical breast exam by your physician is recommended on an annual basis and results should be correlated with mammographic findings. Electronically signed and approved by: Evert Wong M.D.
== END | disposition home or self-care (01) ==
LOC: RADMAMWWP 15:53
PROVIDERS: ATTEND Family Medicine
DX: Z12.31 Encounter for screening mammogram for malignant neoplasm of breast (principal); Z78.0 Asymptomatic menopausal state; Z80.3 Family history of malignant neoplasm of breast; Z98.890 Other specified postprocedural states
CPT/HCPCS: 77063; 77067

== ENCOUNTER → 2023-07-14 | Outpatient (CLI) | payer MEDICARE, BC ==
--- NOTE | 2023-07-14 16:27 | P.SLEEP ---
History of Present Illness DATE: 07/14/2023 CONSULTATION/NEW PATIENT EVALUATION HISTORY OF PRESENT ILLNESS/SLEEP-WAKE EVALUATION: 68-year-old lady had been ev aluated in the sleep center for possible obstructive sleep apnea hypopnea syndrome. SLEEP SCHEDULE: Usually sleep schedule from 1011 PM to 57 AM. FALLING ASLEEP: Patient does have problems with falling asleep, used to read in bedroom. DURING SLEEP: Patient snores and wakes up from sleep 2 times and one time to use rest from. Positive history of night manners, sweating, dry mouth, grinding te eth. No history of hypnogogical hallucinations, sleep paralysis, or cataplexy. DURING THE DAY/WAKE STATE: In the morning patient wake up tired, has difficulties to place attention, falling asleep during the day, has problems with memory, concentration, irritability.. [place] sleepiness scale is increased to 13. Patient doesn't take naps but may follow sleep in different situations. PAST MEDICAL HISTORY: Fibromyalgia, asthma sinuses problems, seizures episodes, brain lesions, sinuses problems. PAST SURGICAL HISTORY: Tonsillectomy, left ovary removed for BX cyst. MEDICATIONS: Zyrtec 25 mg as needed. SOCIAL HISTORY: Negative for smoking or using alcohol. FAMILY HISTORY: Hypertension, Parkinson's disease, asthma, cancer, narcolepsy, diabetes, anemia. REVIEW OF SYSTEMS: Snoring, multiple awakenings from sleep, episodes of seizures. No fevers. No double vision. No recent chest pain. No shortness of breath. No abdominal pain. No bleeding episodes. No blood in urine. PHYSICAL EXAMINATION: GENERAL: A pleasant patient without any distress. VITAL SIGNS: BP 97/63, HR 64, RR 16, weight 119.8 pounds, height 5 foot 4 inches, body mass index 19.9. HEENT: PERRLA, EOMI. Evaluation of oropharynx showed tongue protrudes midline, low position of soft palate Mallampati 2, short distance between soft palate and posterior pharyngeal wall, significant retrognathia about 4 mm. NECK: Supple. No JVD. Thyroid is not palpable. 12.5 inches in circumference. LUNGS: Clear to percussion and to auscultation. Good air exchange. No wheezing or rhonchi. HEART: S1, S2 regular. No murmurs, gallops or rubs. ABDOMEN: Soft and nontender. Bowel sounds are present. No organomegaly appreciated. EXTREMITIES: No clubbing or cyanosis. MACHINE HEEL SEAT FITTER: Awake, alert, and oriented x3. Cranial nerves 2 to 7 intact. There is no fasciculation or atrophy noted. No focal deficits observed. ASSESSMENT: 1. Snoring, multiple awakenings from sleep, significant retrognathia up to 4 mm, short distance between soft palate and posterior pharyngeal wall, sleepiness with [place] Sleepiness Scale 13. Possible obstructive sleep apnea hypopnea syndrome. 2. History of seizure disorder. 3. A history of multiple small brain lesions. 4. History of fibromyalgia. 5 history of headaches. 6 . ALLERGY. 7. Sinuses problems. 8. Status post tonsillectomy. 9 . Status post left ovary removed. PLAN: 1. Polysomnography for evaluation of patient's breathing during sleep. 2. Following plan after reading sleep study 3. Preferable position during sleep on the side. 4. No driving if patient feels any sleepiness. Patient is aware of civil and criminal liability for unsafe driving. 5. Sleep hygiene with regular sleep time for at least 7.5-8 hours. 6. Watching weight. Thank you very much for referring this patient for consultation. Sincerely, Saurav Quinones MD, PhD, FAASM. Diplomat of [place] [employer], Sleep Medicine Board by [place] [employer] [place] [employer] [place] [facility] [place] Past Medical History Past Medical History: Fibromyalgia Additional Past Medical History / Comment(s): memory issues History of Any Multi-Drug Resistant Organisms: None Reported Smoking Status: Never smoker Past Alcohol Use History: None Reported Past Drug Use History: None Reported Medications and Allergies Home Medications Medication Instructions Recorded Confirmed Type estradioL [Vivelle-Dot 0.0375 MG] 1 patch TRANSDERM TUSA 05/27/22 05/27/22 History traZODone HCL [Desyrel] 25 mg PO HS 30 Days #30 tab 05/29/22 Rx Allergies Allergy/AdvReac Type Severity Reaction Status Date / Time iodine Allergy Anaphylaxis Verified 05/27/22 13:32 shellfish derived [Shellfish] Allergy Anaphylaxis Verified 05/27/22 13:32 gluten AdvReac Nausea & Verified 05/27/22 13:32 Vomiting & Diarrhea Milk Containing Products AdvReac Nausea & Verified 05/27/22 13:32 (Dairy) Vomiting & [Dairy] Diarrhea Sleep Note - Sleep Note Sleep Note: Temperature: Pulse Rate: Respiratory Rate: Blood Pressure: SpO2: Height: Weight: BMI: Neck Circumference:
== END ==
LOC: 3 N SLEEP 15:18
PROVIDERS: ATTEND Internal Medicine
DX: R06.83 Snoring (principal); R51.9 Headache, unspecified; J45.909 Unspecified asthma, uncomplicated; M79.7 Fibromyalgia; T78.40XA Allergy, unspecified, initial encounter; Z86.69 Personal history of other diseases of the nervous system and sense organs; Z98.890 Other specified postprocedural states; Z90.89 Acquired absence of other organs; Z90.721 Acquired absence of ovaries, unilateral; Z87.820 Personal history of traumatic brain injury; Z88.8 Allergy status to other drugs, medicaments and biological substances; Z91.013 Allergy to seafood; Z91.011 Allergy to milk products; Z79.899 Other long term (current) drug therapy; X58.XXXA Exposure to other specified factors, initial encounter
CPT/HCPCS: 99211

== ENCOUNTER 2023-09-11 19:33 | Outpatient (CLI) | payer MEDICARE, BC ==
--- NOTE | 2023-09-15 17:16 | P.PCN ---
Description of Procedure: POLYSOMNOGRAPHY REPORT PROCEDURE(S)/DATE(S): Polysomnography 09/11/2023 CLINICAL: Patient has been seen in the sleep center for evaluation of obstructive sleep apnea-hypopnea syndrome. Please see my consultation. Sleep study has been done for evaluation of patient breathing during the sleep. PROCEDURE: The standard montage for clinical polysomnography included the electroencephalogram, the electrooculogram, the mentalis surface electromyography and Lead II cardiography. The respiratory battery consisted of measurements of nasal/buccal air flow, pressure transducer measurements from nose, thoracic and/or abdominal effort and intercostal surface electromyography. Video monitoring has been done to check for any parasomnia events. Nocturnal oxyhemoglobin saturations were obtained by finger oximetry. Step-conley titration with positive airway pressure was utilized to control the respiratory events, if necessary. RESULTS: During the diagnostic sleep study sleep efficiency was in high range 93.5 %. Latency to sleep onset was in normal range 24.0 min. Sleep architectur e showed stage NI was extremely short 1.4 %, Delta sleep was extremely short 0.7 %, REM sleep was over 7.8 %. Respiratory channel showed 0 obstructive apneas, 0 mixed apneas, 0 central apneas, 3 hypopneas with lowest oxygen level 85 %. Total apnea hypopnea index was 0.5. Heart rate was in the range between 56 and 66, average 60. EMG showed 0.7 periodic limb movements per hour. IMPRESSIONS: 1. No significant respiratory abnormalities have been documented during the sleep study. 2. No significant periodic limb movements have been documented. Please see other impressions from consultation PLAN: 1. I will see patient for follow-up visit to explain results of the test and recommendations. 2. Sleep hygiene with regular time in bed for at least 7-1/2 hours. 3. No driving if feeling sleepiness. Thank you very much for allowing me to participate in the management of your patient. Sincerely, Saurav Quinones MD, PhD, FAASM. Diplomat of [place] [employer], Sleep Medicine Board by [place] [employer] Contact Center Director of [facility] [place]
== END 2023-09-12 05:45 | disposition home or self-care (01) ==
LOC: 3 N SLEEP 19:33
PROVIDERS: ATTEND Internal Medicine
DX: G47.33 Obstructive sleep apnea (adult) (pediatric) (principal); Z91.013 Allergy to seafood; Z91.018 Allergy to other foods; Z88.8 Allergy status to other drugs, medicaments and biological substances
CPT/HCPCS: 95810

== ENCOUNTER → 2023-10-26 | Outpatient (CLI) | payer MEDICARE, BC ==
--- NOTE | 2023-10-26 17:21 | P.PN ---
Subjective DATE: 10/26/2023 FOLLOW UP VISIT. Patient returned to sleep center to discuss results of sleep study. I discuss results of sleep studies with patient in details. No significant respiratory abnormalities have been documented. No periodic limb movements have been documented during the sleep study. Patient asked question about the amount of different stages of sleep during sleep study. Amount of REM sleep was slightly decreased, which could be secondary to first night for the patient responds in sleep clinic. Patient has episodes of tiredness, but no significant sleepiness during the day. . [place] sleepiness scale is 6, which is normal. MEDICATIONS:1. Zyrtec 10 mg as needed 2. Estradiol patch 3. Progesterone/testosterone During physical exam: GENERAL: A pleasant patient without any distress. VITAL SIGNS: BP 114/74, HR 68, RR 12 , weight 118.6, temperature 97.7, oxygen saturation at room air 99 . HEENT: PERRLA, EOMI. NECK: Supple. No JVD. LUNGS: Clear to percussion and to auscultation. Good air exchange. No wheezing or rhonchi. HEART: S1, S2 regular. ABDOMEN: Soft and nontender. EXTREMITIES: No clubbing or cyanosis. BULKHEAD CARPENTER: Awake, alert, and oriented x3. No focal deficit. Impressions: 1. No significant respiratory abnormalities have been documented during the sleep study 2. No periodic limb movements. 3. History of seizures disorder. 4. History of multiple small brain lesions. 5. History of fibromyalgia. 6. History of headaches. 7. ALLERGY. 8. History of sinuses problems. 9. Status post tonsillectomy. 10 status post left ovary removed Plan: 1. Sleep hygiene with regular time in bed for at least 8 hours. 2. Precautions related to driving. No driving if feel any sleepiness. Patient is aware about civil and criminal liability for unsafe driving, promised to follow recommendations. 3. Follow up visit in 1 year if necessary. Thank you very much for allowing me to participate in the management of your patient. Saurav Quinones MD, PhD, FAASM. Diplomat of [place] [employer], Sleep Medicine Board by [place] [employer] Instructor of [facility] [place]
== END ==
LOC: 3 N SLEEP 15:22
PROVIDERS: ATTEND Internal Medicine
DX: M79.7 Fibromyalgia (principal); Z86.69 Personal history of other diseases of the nervous system and sense organs; Z87.39 Personal history of other diseases of the musculoskeletal system and connective tissue; Z98.890 Other specified postprocedural states; Z90.89 Acquired absence of other organs; Z87.09 Personal history of other diseases of the respiratory system; Z88.8 Allergy status to other drugs, medicaments and biological substances; Z91.013 Allergy to seafood; Z91.011 Allergy to milk products; Z91.018 Allergy to other foods
CPT/HCPCS: 99212

== ENCOUNTER → 2023-11-08 | Outpatient (CLI) | payer MEDICARE, BC ==
--- NOTE | 2023-11-09 09:35 | MM ---
Reason for Exam: Screening (asymptomatic). Last mammogram was performed 1 year(s) and 2 month(s) ago. Patient History: Menarche at age 13. First Full-Term at age 31. Late child-bearing (after 30). Left ovary removed at age 39. Postmenopausal. Currently using Estrogen, beginning at age 46 for 14 years. Currently using Progesterone, beginning at age 46 for 14 years. Patient used Hormonal Contraceptives for 15 years. 1999, Benign Ultrasound-Guided Cyst Aspiration on the right side. 1999, Benign Excisional Biopsy on the right side. Excisional Biopsy on the Left side. Sister had breast cancer, age 63. Risk Values: Lucina 5 year model risk: 4.7%. NCI Lifetime model risk: 14.0%. Prior Study Comparison: 07/07/2021 Right Diagnostic Mammogram, [facility]. 12/25/2021 Right Diagnostic Mammogram, [facility]. 09/07/2022 Bilateral MG 3D screening mammo w/cad, [facility]. Tissue Density: The breast tissue is heterogeneously dense. This may lower the sensitivity of mammography. Findings: Analyzed By CAD. There is no suspicious group of microcalcifications or new suspicious mass. Overall Assessment: Negative, BI-RAD 1 Management: Screening Mammogram of both breasts in [address] [facility] will attempt to contact patient to return for supplemental views and ultrasound if indicated. Patient should continue monthly self-breast exams. A clinical breast exam by your physician is recommended on an annual basis. This exam should not preclude additional follow-up of suspicious palpable abnormalities. Note on Lcuina scores and lifetime risk: 1. A Lucina score greater than 3% is considered moderate risk. If this is the case, consider specialist referral to assess eligibility for a risk reducing agent. 2. If overall lifetime risk for the development of breast cancer is 20% or higher, the patient may qualify for future screening with alternating mammogram and breast MRI. Electronically signed and approved by: Naren Carlson DO
== END | disposition home or self-care (01) ==
LOC: RADMAMWWP 12:45
PROVIDERS: ATTEND Family Medicine
DX: Z12.31 Encounter for screening mammogram for malignant neoplasm of breast (principal); Z78.0 Asymptomatic menopausal state; Z80.3 Family history of malignant neoplasm of breast
CPT/HCPCS: 77063; 77067

== ENCOUNTER → 2024-01-31 | Outpatient (CLI) | payer MEDICARE, BC ==
--- NOTE | 2024-02-01 09:46 | US ---
EXAMINATION TYPE: US liver DATE OF EXAM: 01/31/2024 COMPARISON: US 08/27/2022 CLINICAL INDICATION: Female, 68 years old with history of K76.89 OTHER SPECIFIED DISEASES OF LIVER; L iver cyst. Hx of kidney stones. TECHNIQUE: Multiple sonographic images of the right upper quadrant are obtained. FINDINGS: EXAM MEASUREMENTS: Liver Length: 13.3 cm Gallbladder Wall: 0.2 cm CBD: 0.4 cm Right Kidney: 9.8 x 5.3 x 3.7 cm IMAGING SCIENCE PROFESSOR NOTES: Limited due to gas. Pancreas: Slightly limited. Liver: Heterogeneous. -Anechoic area with hyperechoic focus seen within left lobe: 1.0 x 1.2 x 0.8 cm. -Anechoic area seen within right lobe: 1.6 x 1.2 x 0.9 cm. -Complex area seen within right lobe: 2.3 x 1.7 x 2.0 cm. Gallbladder: *Hyperechoic area seen that appears to be attached to the gallbladder wall: 0.3 x 0.2 x 0.2 cm. Evidence for sonographic Marley's sign: No CBD: Portions seen appear wnl Right Kidney: *Hyperechoic focus seen lower pole: 0.4 x 0.5 x 0.4 cm. Prominent renal pelvis. IMPRESSION: 1. Right lobe hepatic cyst. 2. Complex cyst within the right lobe liver. 3. Small polyp may be within the nondependent portion of the gallbladder. 4. Nonshadowing echogenic nonobstructing renal stone inferior pole right kidney
== END | disposition home or self-care (01) ==
LOC: RADUSWWP 08:38
PROVIDERS: ATTEND Family Medicine
DX: K76.89 Other specified diseases of liver (principal); N20.0 Calculus of kidney
CPT/HCPCS: 76705

== ENCOUNTER → 2024-03-22 | Outpatient (CLI) | payer MEDICARE, BC ==
--- NOTE | 2024-04-04 23:24 | BD ---
EXAMINATION TYPE: Axial Bone Density DATE OF EXAM: 03/22/2024 CLINICAL HISTORY: 68 years old Female. ICD-10 CODE: Z13.820 ENCOUNTER FOR SCREENING FOR OSTEOPOROSIS Height: 64.2in Weight: 115lb FRAX RISK QUESTIONS: History of Fracture in Adulthood: unsure Secondary Osteoporosis: RISK FACTORS HISTORY OF: MEDICATIONS: Thyroid Medications: Which medication: nonprescription vitamin How Lon years EXAM MEASUREMENTS: Bone mineral densitometry was performed using the [employer] System. Bone mineral density as measured about the Lumbar spine is: ----- L1-L4(G/cm2): 1.038 T Score Values are as follows: ----- L1: -1.0 ----- L2: -1.4 ----- L3: -1.1 ----- L4: -1.3 ----- L1-L4: -1.2 Z Score Values are as follows: ----- L1: 1.0 ----- L2: 0.7 ----- L3: 1.0 ----- L4: 0.8 ----- L1-L4: 0.9 Bone mineral density has: Decreased -5.5% since study of: 03-09-21 Bone mineral density about the R hip (g/cm2): 0.804 Bone mineral density about the L hip (g/cm2): 0.792 T Score values are as follows: -----R Neck: -2.0 -----L Neck: -2.1 -----R Total: -1.6 -----L Total: -1.7 Z Score values are as follows: -----R Neck: -0.1 -----L Neck: -0.2 -----R Total: 0.1 -----L Total: 0.0 Bone mineral density has: Decreased -1.4% since study of: 03-09-21 FRAX%s: The graph provided illustrates a 10.8% chance for a major osteoporotic fx and a 2.4% chance f or the hips probability for fx in 10 years time. IMPRESSION: Osteopenia (T Score between -2.5 and -1). There is slightly increased risk of fracture and the patient may be considered for treatment. Re-Screen 2-5 years. NOTE: T-SCORE=SD OF THE YOUNG ADULT MEAN.
== END | disposition home or self-care (01) ==
LOC: RADBDWWP 10:29
PROVIDERS: ATTEND Family Medicine
DX: Z13.820 Encounter for screening for osteoporosis (principal); M85.88 Other specified disorders of bone density and structure, other site
CPT/HCPCS: 77080